=== PATIENT | male | born 1955 | race Caucasian/White ===

== ENCOUNTER 2019-09-25 13:25 | Outpatient (CLI) | payer BC, SELFPAY ==
--- NOTE | ~2019-09-25 | CT_ITS ---
EXAMINATION: CT abdomen pelvis w con INDICATION: Right lower abdominal pain TECHNIQUE: Computed tomographic images of the abdomen and pelvis were obtained after the administrati on of 100 cc of Omnipaque 350 intravenous contrast. The dose-length product (DLP) was 734.08 mGy-cm. Automated exposure control and iterative reconstruction technique were employed. COMPARISON: None available FINDINGS: The lung bases are clear. The heart size is normal. Calcified coronary artery atheroscleros is is noted. There is a small sliding hiatal hernia. There is a 5 mm cyst in the right hepatic lobe. The spleen, pancreas, gallbladder, and adrenal glands are normal. The kidneys are unremarkable. No pa thologically enlarged abdominal or pelvic lymph nodes are identified. The appendix is normal. There i s calcified atherosclerosis of the aorta and many of the other arteries. There is a fat-containing ri ght inguinal hernia. There is no free intraperitoneal gas or evidence of bowel obstruction. There is moderate lumbar spondylosis. IMPRESSION: 1. No CT correlate for the patient's symptoms. Reviewed, dictated and finalized at location A.
[2019-09-25 15:23] LABS: Estimated Glomerular Filt Rate > 60
== END 2019-09-25 13:26 | disposition home or self-care (01) ==
PROVIDERS: PCP Family Medicine; Visit Provider Internal Medicine Gastroenterology
DX: R10.31 Right lower quadrant pain (principal)
CPT/HCPCS: 36415; 74177; Q9967

== ENCOUNTER 2019-11-03 00:13 | Outpatient (CLI) | payer BC, SELFPAY ==
[2019-11-03 18:54] LABS: SARS-CoV-2 RNA PCR Negative
== END 2019-11-03 00:14 | disposition home or self-care (01) ==
LOC: ANHCOVIDDT 00:13
PROVIDERS: PCP Family Medicine; Visit Provider Surgery
DX: Z01.812 Encounter for preprocedural laboratory examination (principal); Z11.59 Encounter for screening for other viral diseases
CPT/HCPCS: 87635; C9803; U0003

== ENCOUNTER 2019-11-05 01:41 | Day surgery (SDC) | payer BC, SELFPAY ==
[2019-10-23 14:54] VITALS: BMI 27.7
--- NOTE | 2019-11-04 14:05 | WPDANESEPPF ---
Anes - Initial Pre Proc Eval Procedure: Operation Date: 11/05/19 09:00 Proposed Procedures p Right Inguinal Hernia Repair - Haris Cook MD Date/Time: 11/04/19 14:05 Surgeon: Haris Cook MD Pre Op Diagnosis: Right Inguinal Hernia Patient Data Age: 64 Gender: M Height: 1.85 m Weight: 95.25 kg Allergies Allergy/AdvReac Type Severity Reaction Status Date / Time No Known Allergies Allergy Verified 10/23/19 14:50 Home Medications Medication Instructions Recorded Confirmed Type sildenafil [Viagra] 100 mg PO PRN PRN 10/23/19 10/23/19 History hydrocodone-acetaminophen 1 - 2 tablet PO Q6H PRN #7 tablet 11/05/19 Rx ketorolac 10 mg PO Q6H 4 Days #16 tablet 11/05/19 Rx Patient hx anesthesia problems: none Family hx anesthesia problems: none [facility] Social History Social History (Updated 10/13/19 @ 08:49 by Kiara Lawrence, [facility]) Smoking status: Former smoker (last smoked at age 36yo) Smoking end date: 05/07/86 Alcohol intake: current Substance use: never Gender identity (if verbalized by the patient): Male Anes - Eval Final PreProcedure Day of Procedure 11/04/19 14:05 Patient weight: overweight Heart: regular rate and rhythm Lungs: clear to auscultation and normal air movement Airway: Mallampati scale class II Neurological: alert and oriented Last oral intake: >/= 8 hours ASA classification: II Emergent: no Anesthetic plan: proceed Anesthesia type and monitoring: general GIVS Informed Consent: The patient's anesthetic plan and its attendant risks and benefits were discussed with the patient/family/POA. Questions were solicited and answers provided to the satisfaction of the patient/family/POA.
[2019-11-05 07:10] VITALS: BP 162/93; PULSE 82; RESP 16; TEMP 36.1; O2SAT 100
--- NOTE | 2019-11-05 07:28 | WPDHPUPDATE1 ---
History and Physical Update Update Date/Time: 11/05/19 07:28 History and Physical has been reviewed, including an updated exam of the patient. There are NO changes in the patient's condition. Risks, benefits, and alternatives have been discussed and questions answered. Patient agrees to proceed with procedure.
--- NOTE | 2019-11-05 07:28 | PM.PROC ---
Procedure Note - Detailed Date of procedure: 11/05/19 Pre-op diagnosis: Right Inguinal Hernia Right inguinal hernia Post-op diagnosis: same (Indirect hernia) Procedure performed: Repair of right inguinal hernia with 6 cm Parietex hernia mesh system Description of procedure: The patient was taken to surgery and IV sedation was administered. The right groin and genitalia were prepped and draped. Proposed incision was marked on the skin. Local was infiltrated into the skin and the deeper subcutaneous tissues. Incision was made and deepened through the subcutaneous. Crossing veins were cauterized and divided. Dissection was carried through Elizabeth's fascia down to the external oblique aponeurosis. The aponeurosis was exposed as was the external ring. Additional local anesthesia was infiltrated deep to the aponeurosis in the area of the spermatic cord and inguinal canal contents. The aponeurosis was opened laterally and extended medially through the external ring. The leaves of the aponeurosis were dissected free from the spermatic cord. The ileoinguinal nerve was carefully preserved throughout the dissection and was left attached to the spermatic cord. The cord was then mobilized medially on a Blanchard drain. The cord was dissected back to the internal ring. There was a lot of lipomatous tissue in the spermatic cord. This was dissected back to the internal ring, amputated and discarded. The hernia sac was found and dissected free. The sac was dissected back to a high dissection. It was dunked into the retroperitoneum. A 6 centimeter Parietex mcgrath was chosen. It was folded to form a plug. It was placed in the defect. The edges were sutured to the transversalis fascia with interrupted 3 0 Vicryl suture. The patch was then cut to the appropriate size and placed over the inguinal canal floor. The lateral leaves were passed beyond the cord. The cord and ileoinguinal nerve were then laid over the patch. The external oblique aponeurosis was closed with interrupted 3 0 Vicryl suture. Elizabeth's fascia was closed with interrupted 3 0 Vicryl suture. The subcutaneous was closed with interrupted 4 0 Vicryl suture. Four 0 Vicryl subcuticular skin sutures were placed. The skin was closed finally with a running 4 0 Monocryl skin suture. The wound was dressed with Exofin surgical adhesive. The patient was awakened and taken to recovery in good condition. Sponge and needle counts were correct x2. Anesthesia: MAC and local (0.5% Marcaine with Exparel) Surgeon: Haris Cook MD Production Consultant: Amanda SURESH Estimated blood loss (mL): 5 Drains: No Packing: No Pathology: none sent Complications: None Condition: stable Disposition: same day Findings: Indirect inguinal hernia. No sliding hernia was noted.
[2019-11-05] MEDS: LACTATED RINGERS 1,000 ML 30 ML IV CONT (07:50)
[2019-11-05] MEDS: ceFAZolin 2 GM/D5W 50 ML 2 GM/50 ML BAG IVPB (08:51)
[2019-11-05 10:10] VITALS: BP 125/82; PULSE 65; RESP 12; TEMP 36.3; O2SAT 97
[2019-11-05 10:40] VITALS: BP 135/85; PULSE 54; O2SAT 99
[2019-11-05 11:10] VITALS: BP 133/87; PULSE 65; O2SAT 99
== END 2019-11-05 11:35 | disposition home or self-care (01) ==
PROVIDERS: PCP Family Medicine; Visit Provider Surgery
PROC: (CPT 49505; principal; 2019-11-05 09:00)
DX: K40.90 Unilateral inguinal hernia, without obstruction or gangrene, not specified as recurrent (principal); Z87.891 Personal history of nicotine dependence
CPT/HCPCS: 49505; A9270; C1781; C9290; J0690; J2250; J2405; J2704; J3010; J7120

== ENCOUNTER 2024-03-26 05:51 | Day surgery (SDC) | payer OTHER, SELFPAY ==
[2024-01-16 11:55] VITALS: BMI 25.7
[2024-03-05 13:59] VITALS: BMI 25.2
[2024-03-26 06:19] VITALS: BP 150/86; PULSE 85; RESP 16; TEMP 36.2; O2SAT 100
--- NOTE | 2024-03-26 07:05 | WPDANESEPPF ---
Anes - Initial Pre Proc Eval Procedure: Operation Date: 03/26/24 07:30 Proposed Procedures p Diagnostic Colonoscopy - Mo Rea MD Date/Time: 03/26/24 07:05 Surgeon: Mo Rea MD Pre Op Diagnosis: History of Polyps Patient Data Age: 68 Gender: M Height: 1.85 m Weight: 84.8 kg Last Vital Signs Temp 36.2 C L 03/26/24 06:19 Pulse 85 03/26/24 06:19 Resp 16 03/26/24 06:19 BP 150/86 H 03/26/24 06:19 Pulse Ox 100 03/26/24 06:19 O2 Del Method Room Air 03/26/24 06:19 Allergies Allergy/AdvReac Type Severity Reaction Status Date / Time No Known Allergies Allergy Verified 03/26/24 06:12 Home Medications Medication Instructions Recorded Confirmed Type doxycycline monohydrate 50 mg 50 mg PO DAILY 01/10/24 03/05/24 History tablet psyllium husk 0.4 gram capsule 1.6 g PO DAILY 01/10/24 03/26/24 History (Daily Fiber) Fish Oil 1 cap PO DAILY 03/05/24 03/26/24 History lorazepam 0.5 mg tablet See Rx Instructions PO .COMPLEX #1 03/06/24 03/26/24 Rx tablet Patient hx anesthesia problems: none Family hx anesthesia problems: none Results Review: All pre-operative results and documents have been reviewed as part of the pre-operative evaluation. FORMERLY [facility], [facility] Past Medical History Medical History Acne rosacea Adenomatous colon polyp Colon, diverticulosis Erectile dysfunction History of hepatitis B Personal history of colonic polyps Surgical History Surgical History H/O colonoscopy History of inguinal herniorrhaphy Right side, 11/05/2019 Family History Family History Mother Hypertension Family history of lung cancer Father Family history of Alzheimer's disease Sibling Kidney disease Sibling Kidney disease Social History Social History Smoking status: Former smoker Tobacco type: cigarettes Smoking end date: 05/07/86 Alcohol intake: current Drinks per week: 4 Substance use: never Substance use type: does not use Do You Feel Safe in your Home?: Yes Lack of Transportation: No Lack of Food: Never True Current Housing: I Have Housing Concerned About Future Housing: No Difficulty Paying Gas/Electric Bills: No Difficulty Paying for Meds: No Currently Unemployed: YES Education: Bachelor's Degree Difficulty w/ Childcare or Family Care: No Living arrangements: alone Occupation/Education: retired Gender identity (if verbalized by the patient): Male Spiritual care concerns: No Anes - Eval Final PreProcedure Day of Procedure 03/26/24 07:05 Patient weight: normal Heart: regular rate and rhythm Lungs: clear to auscultation Airway: Mallampati scale class II Neurological: alert and oriented Last oral intake: >/= 8 hours ASA classification: II Emergent: no Anesthetic plan: proceed Anesthesia type and monitoring: general GIVS and standard monitoring Results Review: All pre-operative results and documents have been reviewed as part of the pre-operative evaluation. Informed Consent: The patient's anesthetic plan and its attendant risks and benefits were discussed with the patient/family/POA. Questions were solicited and answers provided to the satisfaction of the patient/family/POA.
--- NOTE | 2024-03-26 07:09 | PM.HPGS ---
History of Present Illness History of Present Illness Consent: Risks, benefits, and alternatives have been discussed and questions answered. Patient agrees to proceed with procedure. Chief complaint: History of Polyps Narrative: Erwin Dunn is a 68 year old male presents for screening colonoscopy. 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 Patient reports his current weight appetite and bowel movements are normal. Patient denies abdominal pain. He has had no bleeding. Family history is significant that his older sister had colon polyps. Review of Systems Review of Systems: All systems reviewed & are unremarkable except as noted in HPI and below PMFSH Past Medical History Medical History Acne rosacea Adenomatous colon polyp Colon, diverticulosis Erectile dysfunction History of hepatitis B Personal history of colonic polyps Surgical History Surgical History H/O colonoscopy History of inguinal herniorrhaphy Right side, 11/05/2019 Family History Family History Mother Hypertension Family history of lung cancer Father Family history of Alzheimer's disease Sibling Kidney disease Sibling Kidney disease Social History Social History Smoking status: Former smoker Tobacco type: cigarettes Smoking end date: 05/07/86 Alcohol intake: current Drinks per week: 4 Substance use: never Substance use type: does not use Do You Feel Safe in your Home?: Yes Lack of Transportation: No Lack of Food: Never True Current Housing: I Have Housing Concerned About Future Housing: No Difficulty Paying Gas/Electric Bills: No Difficulty Paying for Meds: No Currently Unemployed: YES Education: Bachelor's Degree Difficulty w/ Childcare or Family Care: No Living arrangements: alone Occupation/Education: retired Gender identity (if verbalized by the patient): Male Spiritual care concerns: No Meds Home Medications and Allergies Home Medications Medication Instructions Recorded Confirmed Type doxycycline monohydrate 50 mg 50 mg PO DAILY 01/10/24 03/05/24 History tablet psyllium husk 0.4 gram capsule 1.6 g PO DAILY 01/10/24 03/26/24 History (Daily Fiber) Fish Oil 1 cap PO DAILY 03/05/24 03/26/24 History lorazepam 0.5 mg tablet See Rx Instructions PO .COMPLEX #1 03/06/24 03/26/24 Rx tablet Allergies Allergy/AdvReac Type Severity Reaction Status Date / Time No Known Allergies Allergy Verified 03/26/24 06:12 Vital Signs Vital Signs - 24 hr 03/26/24 06:19 Temperature 97.2 F L Pulse Rate 85 Respiratory Rate 16 Blood Pressure 150/86 H Pulse Oximetry 100 Oxygen Delivery Room Air Exam Narrative: Physical exam reveals patient to be alert stable. HEENT exam is unremarkable. Patient is anicteric. Lungs are clear to auscultation and to percussion. Heart exam Is without murmur or extra sounds. Abdomen bowel sounds are present soft nontender with no hepatosplenomegaly. Digital external rectal exam normal. Assessment and Plan Assessment and plan (1) Personal history of colonic polyps: Code(s): Z86.010 - Personal history of colon polyps Status: Acute Assessment and Plan: Patient has a prior history of adenomatous colon polyps. Plan for surveillance colonoscopy at 5 year intervals per
[2024-03-26] MEDS: LACTATED RINGERS 1,000 ML 150 ML IV CONT (07:16)
[2024-03-26] MEDS: SIMETHICONE ORAL SUSPENSION 20 MG/0.3 ML 30 ML BOTTLE 0.6 ML IRRIGATION (07:28)
[2024-03-26 07:42] VITALS: BP 112/80; PULSE 74; RESP 16; O2SAT 99
[2024-03-26 07:52] VITALS: BP 121/74; PULSE 68; RESP 16; O2SAT 99
[2024-03-26 08:02] VITALS: BP 127/77; PULSE 69; RESP 17; O2SAT 99
--- NOTE | 2024-03-26 08:13 | WPDANESPN ---
Anes - Prog Note Post-Op Date/Time: 03/26/24 08:13 Cardiovascular status: normal Respiratory status: normal Airway patency: baseline Mental status: baseline Post-Op hydration status: normal Vital Signs: Last Vital Signs Temp 36.2 C L 03/26/24 06:19 Pulse 69 03/26/24 08:02 Resp 17 03/26/24 08:02 BP 127/77 03/26/24 08:02 Pulse Ox 99 03/26/24 08:02 O2 Del Method Room Air 03/26/24 08:02 Pain Score (VAS): 0/10 I/O: Intake & Output 03/25/24 03/26/24 03/26/24 23:59 07:59 15:59 Intake Total 450 Balance 450 Patient Feedback: Patient satisfied with anesthetic care.
== END 2024-03-26 08:12 | disposition home or self-care (01) ==
PROVIDERS: PCP Family Medicine; Visit Provider Internal Medicine Gastroenterology
PROC: 0DJD8ZZ Inspection of Lower Intestinal Tract, Via Natural or Artificial Opening Endoscopic (ICD-10-PCS; CPT 45378; principal; 2024-03-26 07:30)
DX: Z86.0100 Personal history of colon polyps, unspecified (principal); D12.3 Benign neoplasm of transverse colon; K64.8 Other hemorrhoids
CPT/HCPCS: 45385

== ENCOUNTER 2024-03-26 07:00 | Outpatient (NON) | payer OTHER, SELFPAY | END 2024-03-26 07:01 | disposition home or self-care (01) | LOC: ANHLAB 03-27 08:11 | PROVIDERS: PCP Family Medicine; Visit Provider Internal Medicine Gastroenterology | DX: D12.3 Benign neoplasm of transverse colon (principal) | CPT/HCPCS: 88305 ==

== ENCOUNTER 2024-12-22 08:13 | Outpatient (CLI) | payer MEDICARE, SELFPAY ==
--- NOTE | ~2024-12-22 | US_ITS ---
EXAMINATION: US carotid duplex BI DATE: 12/22/2024 9:56 CDT INDICATION: Occlusion and stenosis of bilateral carotid arteries TECHNIQUE: Grayscale, color Doppler, and pulsed Doppler images of the cervical carotid arteries were obtained. The degree of vessel stenosis is placed in one of the following categories: normal, <50%, 50-69%, >=7 0% but less than near-occlusion, near-occlusion, or total occlusion. Note that percent stenosis relative to normal distal artery lumen diameter is indirectly measured fro m velocity measurements as described originally by Gian, et al. Radiology 2003; 229:340-346 and upda neftali by tita Zaragoza al STROKE 2012;43(3);915-921. COMPARISON: None. FINDINGS: There is mild atherosclerosis of both carotid arteries. Peak systolic velocity (in cm/s) is detailed below RIGHT: Right common carotid artery (CCA): 98 cm/s. Right internal carotid artery (ICA) PSV: 82 cm/s. Right ICA end-diastolic velocity (EDV): 29 cm/s. Right ICA/CCA PSV ratio is 0.8. Right external carotid artery (ECA): 115cm/s. There is antegrade flow in the right vertebral artery LEFT: Left common carotid artery (CCA): 120 cm/s. Left internal carotid artery (ICA) PSV: 87 cm/s. Left ICA end-diastolic velocity (EDV): 33 cm/s. Left ICA/CCA PSV ratio is 0.7. Left external carotid artery (ECA): 106cm/s. There is antegrade flow in the left vertebral artery. IMPRESSION: 1. Less than 50% stenosis in the right internal carotid artery. 2. Less than 50% stenosis in the left internal carotid artery. Reviewed, dictated and finalized at location A.
--- OUTSIDE RECORDS SUMMARY | 2024-12-22 08:20 | XMS_ITS | Clinical Summary ---
Author Organization [facility] Address [address] [place] [address] Phone Care Team Providers Care Pararescue Manager Name Role Phone Unavailable Primary Care Provider Unavailabl e Medications sildenafil citrate (VIAGRA) 50 MG Tablet Take 50 mg by mouth as needed. Active Social History Tobacco Use Types Packs/Day Years Used Date Smoking Tobacco: Never Assessed Sex and Gender Information Value Date Recorded Sex Assigned at Not on file Legal Sex Male 9:13 AM CDT Gender Identity Not on file Sexual Orientation Not on file Plan of Treatment Health Maintenance Due Date Last Done Comments Hepatitis C Virus (HCV) Screening 1956 Cologuard 2001 Colonoscopy 2001 Colorectal Cancer Screening 2001 Immunochemical Fecal Occult Blood 2001 Pneumococcal Immunization (5 0+ years) (1 of 1 - PCV) 2006 Zoster Immunization (2 of 3) 12/24/2014 2014 SARS-COV-2 Immunization (4 - season) 2024 05/11/2021, 09/07/2020, 08/15/2020 Influenza Immunization (#1) 2025 04/23/2019 Respiratory Syncytial Virus (RSV) Immunization (Adult) (1 - 1-dose 75+ series) 10/30/2031 DTaP/Tdap/Td Immunization Discontinued 12/31/2015 TdaP Immunization Completed 12/31/2015 Hepatitis B Immunization Aged Out No longer eligible based on patient's age to complete this topic Human Papillomavirus (HPV) Immunization Aged Out No longer eligible based on patient's age to complete this topic Meningococcal Immunization (ACWY) Aged Out No longer eligible based on patient's age to complete this topic Rotavirus Immunization Aged Out No lo nger eligible based on patient's age to complete this topic
== END 2024-12-22 08:14 | disposition home or self-care (01) ==
PROVIDERS: PCP Family Medicine; Visit Provider Family Medicine
DX: I65.23 Occlusion and stenosis of bilateral carotid arteries (principal)
CPT/HCPCS: 93880